=== PATIENT | female | born 1960 | race Hispanic/Latino ===

== ENCOUNTER 2020-12-24 11:42 | Emergency (ER) | payer OTHER ==
[~2020-12-24] VITALS: Ht 152.4 cm; Wt 3.6 kg
[2020-12-24] MEDS ORDERED: SODIUM CHLORIDE 0.9% 1000ML 1,000 ML IV STA (12:13)
[2020-12-24] MEDS ORDERED: METRONIDAZOLE 500MG/NS 100ML 100 ML IV ONE ×2 (12:15→12:39)
[2020-12-24] MEDS ORDERED: KETOROLAC TROMETHAMINE 30 MG/ML VIAL IV ONE (12:15)
[2020-12-24] MEDS ORDERED: ONDANSETRON HCL INJ 2MG/ML 2ML 2 MG/ML VIAL IV ONE (12:15)
[2020-12-24] MEDS ORDERED: PIPER-TAZ 3.375 GM 50 ML IV ONE (12:15)
[2020-12-24] MEDS ORDERED: FAMOTIDINE 20 MG/2 ML VIAL IV ONE ×2 (12:15→12:39)
[2020-12-24] MEDS ORDERED: CALCIUM CARBON500 MG PO (12:18)
[2020-12-24] MEDS ORDERED: OMEPRAZOLE40 MG PO (12:18)
[2020-12-24] MEDS ORDERED: DYMISTA NASAL S23 GM INH (12:18)
[2020-12-24] MEDS ORDERED: MONTELUKAST SOD10 MG PO (12:18)
[2020-12-24] MEDS ORDERED: TESSALON PERLE100 MG PO (12:18)
[2020-12-24] MEDS ORDERED: METOPROLOL SUCC50 MG PO (12:18)
[2020-12-24] MEDS ORDERED: CIPRO500 MG PO (12:18)
[2020-12-24] MEDS ORDERED: HYDROCHLOROTHIA50 MG (12:18)
[2020-12-24] MEDS ORDERED: VOLTAREN-XR100 MG PO (12:18)
[2020-12-24] MEDS ORDERED: FLONASE ALLERG9.9 ML INH (12:18)
[2020-12-24] MEDS ORDERED: DICYCLOMINE HCL10 MG PO (12:18)
[2020-12-24] MEDS ORDERED: ACETAMINOPHEN500 MG (12:18)
[2020-12-24] MEDS ORDERED: ONDANSETRON ODT4 MG PO (12:18)
[2020-12-24] MEDS ORDERED: SODIUM CHLORIDE 0.9% 50ML 50 ML ONE (12:33)
[2020-12-24] MEDS ORDERED: IOPAMIDOL 370 MG/ML 200 ML INFUS..BTL INJ ONE (12:33)
[2020-12-24] MEDS ORDERED: PIPER-TAZ 3.375 GM 50 ML ONE (12:39)
[2020-12-24] MEDS ORDERED: ONDANSETRON HCL INJ 2MG/ML 2ML 2 MG/ML VIAL ONE (12:39)
[2020-12-24] MEDS ORDERED: KETOROLAC TROMETHAMINE 30 MG/ML VIAL ONE (12:39)
[2020-12-24] MEDS ORDERED: SODIUM CHLORIDE 0.9% 1000ML 1,000 ML ONE (12:39)
[2020-12-24 13:21] LABS: ALBUMIN 2.3 g/dL (3.5-5.0); ALBUMIN/GLOBULIN RATIO 0.5 (0.8-2.0); ANION GAP 23.8 mmol/L (8-16); CALCIUM 8.3 mg/dL (8.4-10.2); CREATININE, SERUM 4.01 mg/dL (0.57-1.11)
[2020-12-24 13:24] LABS: POTASSIUM 2.8 mmol/L (3.5-5.1)
[2020-12-24] MEDS ORDERED: POTASSIUM CHLORIDE 20 MEQ TAB CR PO ONE ×2 (13:33→13:34)
[2020-12-24 15:28] VITALS: BP 160/73
== END 2020-12-24 15:10 | disposition left against medical advice (07) ==
LOC: FSED 12:15
DX: K63.1 Perforation of intestine (nontraumatic) (principal); N17.9 Acute kidney failure, unspecified; R10.33 Periumbilical pain; E87.1 Hypo-osmolality and hyponatremia; Z20.822 Contact with and (suspected) exposure to COVID-19
CPT/HCPCS: 36415; 74176; 80048; 80053; 80076; 81003; 83690; 85025; 96374; 96375; 99284; J1885; J2405; J2543; J7030; Q9967; U0002

== ENCOUNTER 2020-12-24 18:15 | Inpatient (IN) | payer OTHER ==
[~2020-12-24] VITALS: Ht 152.4 cm; Wt 61.2 kg
[~2020-12-24 18:15] MED LIST: ACETAMINOPHEN500 MG; CALCIUM CARBON500 MG PO; CIPRO500 MG PO; DICYCLOMINE HCL10 MG PO; DYMISTA NASAL S23 GM INH; FLONASE ALLERG9.9 ML INH; HYDROCHLOROTHIA50 MG; LEVOFLOXACIN 500MG/D5W 100ML 100 ML IV SCH; METOPROLOL SUCC50 MG PO; MONTELUKAST SOD10 MG PO; OMEPRAZOLE40 MG PO; ONDANSETRON ODT4 MG PO; TESSALON PERLE100 MG PO; VOLTAREN-XR100 MG PO
[2020-12-24] MEDS ORDERED: SODIUM CHLORIDE 0.9% 1000ML 1,000 ML IV ONE (18:30)
[2020-12-24 18:36] LABS: BASOPHILS # (AUTO) 0.1 (0.0-0.1); BASOPHILS % 0.5 % (0.0-1.0); EOSINOPHILS # (AUTO) 0.2 (0.0-0.4); EOSINOPHILS % 0.8 % (0.0-6.0); HEMATOCRIT 33.1 % (34.2-44.1); HEMOGLOBIN 11.7 g/dL (12.0-16.0); LYMPHOCYTES # (AUTO) 2.4 (1.0-3.2); LYMPHOCYTES % 10.1 % (18.0-39.1); MEAN CORPUSCULAR HGB CONC 35.3 g/dL (31-35); MEAN CORPUSCULAR VOLUME 87.8 fL (81-99); MONOCYTES % 4.1 % (4.4-11.3); NEUTROPHILS # (AUTO) 19.7 (2.1-6.9); NEUTROPHILS % 81.5 % (38.7-80.0); PLATELET COUNT 709 x10e3/uL (140-360); RED BLOOD COUNT 3.77 x10e6/uL (3.6-5.1)
[2020-12-24] MEDS: METRONIDAZOLE 500MG/NS 100ML 100 ML IV SCH (18:37)
[2020-12-24 19:17] LABS: ALBUMIN 2.2 g/dL (3.5-5.0); ALBUMIN/GLOBULIN RATIO 0.5 (0.8-2.0); ANION GAP 20.9 mmol/L (8-16); CALCIUM 7.7 mg/dL (8.4-10.2); CREATININE, SERUM 3.77 mg/dL (0.57-1.11)
[2020-12-24 19:19] LABS: POTASSIUM 2.9 mmol/L (3.5-5.1)
[2020-12-24] MEDS ORDERED: POTASSIUM CHLORIDE 20MEQ/100ML 100 ML IV STA (19:27)
[2020-12-24] MEDS ORDERED: LEVOFLOXACIN 250MG/D5W 50ML 50 ML IV SCH ×2 (19:30→21:44)
[2020-12-24] MEDS ORDERED: KCL 20MEQ/.9 SOD CHL 1,000 ML IV ONE (19:45)
[2020-12-24] MEDS: ONDANSETRON HCL INJ 2MG/ML 2ML 2 MG/ML VIAL IV PRN (20:23)
[2020-12-24] MEDS: MORPHINE SULFATE INJ 2 MG/ML SYR IV PRN (20:23)
[2020-12-24] MEDS ORDERED: HYDRALAZINE HCL 20 MG/ML VIAL IV PRN (21:15)
[2020-12-25] VITALS (20 sets, daily range): BP systolic 92–141; BP diastolic 62–81
[2020-12-25] MEDS: MORPHINE SULFATE INJ 2 MG/ML SYR IV PRN (01:05)
[2020-12-25] MEDS: ONDANSETRON HCL INJ 2MG/ML 2ML 2 MG/ML VIAL IV PRN ×4 (01:05→17:23)
[2020-12-25] MEDS: METRONIDAZOLE 500MG/NS 100ML 100 ML IV SCH ×5 (01:05→23:50)
[2020-12-25 05:48] LABS: BASOPHILS # (AUTO) 0.1 (0.0-0.1); BASOPHILS % 0.4 % (0.0-1.0); EOSINOPHILS # (AUTO) 0.4 (0.0-0.4); EOSINOPHILS % 1.9 % (0.0-6.0); HEMATOCRIT 28.4 % (34.2-44.1); HEMOGLOBIN 9.6 g/dL (12.0-16.0); LYMPHOCYTES # (AUTO) 1.6 (1.0-3.2); LYMPHOCYTES % 8.1 % (18.0-39.1); MEAN CORPUSCULAR HEMOGLOBIN 30.8 pg (28-32); MEAN CORPUSCULAR HGB CONC 33.8 g/dL (31-35); MONOCYTES # (AUTO) 1.2 (0.2-0.8); MONOCYTES % 6.3 % (4.4-11.3); NEUTROPHILS # (AUTO) 15.6 (2.1-6.9); NEUTROPHILS % 80.3 % (38.7-80.0); PLATELET COUNT 541 x10e3/uL (140-360); RED BLOOD COUNT 3.12 x10e6/uL (3.6-5.1); RED CELL DISTRIBUTION WIDTH 13.2 % (11.7-14.4)
[2020-12-25 06:19] LABS: ALBUMIN 1.8 g/dL (3.5-5.0); ALBUMIN/GLOBULIN RATIO 0.5 (0.8-2.0); ANION GAP 17.6 mmol/L (8-16); CALCIUM 7.4 mg/dL (8.4-10.2); CREATININE, SERUM 3.79 mg/dL (0.57-1.11); POTASSIUM 3.6 mmol/L (3.5-5.1)
[2020-12-25] MEDS ORDERED: MIDAZOLAM HCL 2 MG/2 ML VIAL ONE (13:06)
[2020-12-25] MEDS ORDERED: FENTANYL CITRATE/PF 100MCG/2 ML INJ ONE ×2 (13:06→16:08)
[2020-12-25] MEDS ORDERED: PROPOFOL IV EMULSION 10 MG/ML 20 ML VIAL ONE (13:44)
[2020-12-25] MEDS ORDERED: DEXAMETHASONE SOD PHOS INJ 4 MG/ML VIAL ONE (13:44)
[2020-12-25] MEDS ORDERED: SEVOFLURANE INHAL SOLN 250 ML PEN BTL ONE (13:44)
[2020-12-25] MEDS ORDERED: POVIDONE IODINE 0.05% 0.05 % ML PO ONE (13:44)
[2020-12-25] MEDS ORDERED: CEFOXITIN SOD 1 GM VIAL ONE (13:44)
[2020-12-25] MEDS ORDERED: ONDANSETRON HCL INJ 2MG/ML 2ML 2 MG/ML VIAL ONE (13:44)
[2020-12-25] MEDS ORDERED: ATROPINE SULFATE 1 MG/ML VIAL ONE (13:44)
[2020-12-25] MEDS ORDERED: NEOSTIGMINE 1 MG/ML 10ML VIAL ONE (13:44)
[2020-12-25] MEDS ORDERED: ROCURONIUM BROMIDE 10 MG/ML 5ML VIAL IV ONE (13:44)
[2020-12-25] MEDS ORDERED: KETOROLAC TROMETHAMINE 30 MG/ML VIAL ONE (13:44)
[2020-12-25] MEDS ORDERED: LIDOCAINE HCL 2% LOCAL INJ 5 ML SDV VIAL INJ ONE (13:44)
[2020-12-25] MEDS ORDERED: MORPHINE SULFATE INJ 2 MG/ML SYR ONE (16:18)
[2020-12-25] MEDS ORDERED: HYDROMORPHONE 1MG/1ML INJ ONE (16:23)
[2020-12-25] MEDS: MORPHINE SULFATE INJ 4 MG/ML INJ 1ML IV PRN ×2 (17:23→21:28)
[2020-12-25] MEDS ORDERED: SODIUM CHLORIDE 0.9% IV SCH (21:00)
[2020-12-25] MEDS ORDERED: CEFEPIME HCL IV SCH (21:00)
[2020-12-26] VITALS (24 sets, daily range): BP systolic 84–138; BP diastolic 53–73
[2020-12-26] MEDS: MORPHINE SULFATE INJ 4 MG/ML INJ 1ML IV PRN ×3 (03:29→08:16)
[2020-12-26 05:03] LABS: BASOPHILS # (AUTO) 0.1 (0.0-0.1); BASOPHILS % 0.3 % (0.0-1.0); HEMATOCRIT 30.2 % (34.2-44.1); HEMOGLOBIN 10.1 g/dL (12.0-16.0); LYMPHOCYTES # (AUTO) 1.3 (1.0-3.2); LYMPHOCYTES % 3.7 % (18.0-39.1); MEAN CORPUSCULAR HEMOGLOBIN 31.3 pg (28-32); MEAN CORPUSCULAR HGB CONC 33.4 g/dL (31-35); MEAN CORPUSCULAR VOLUME 93.5 fL (81-99); MONOCYTES # (AUTO) 1.1 (0.2-0.8); MONOCYTES % 3.1 % (4.4-11.3); NEUTROPHILS # (AUTO) 31.7 (2.1-6.9); NEUTROPHILS % 89.8 % (38.7-80.0); PLATELET COUNT 713 x10e3/uL (140-360); RED BLOOD COUNT 3.23 x10e6/uL (3.6-5.1); RED CELL DISTRIBUTION WIDTH 13.5 % (11.7-14.4)
[2020-12-26] MEDS: METRONIDAZOLE 500MG/NS 100ML 100 ML IV SCH ×3 (05:20→16:53)
[2020-12-26 05:29] LABS: ALBUMIN/GLOBULIN RATIO 0.5 (0.8-2.0); ANION GAP 21.5 mmol/L (8-16); CALCIUM 7.9 mg/dL (8.4-10.2); CREATININE, SERUM 3.98 mg/dL (0.57-1.11); POTASSIUM 4.5 mmol/L (3.5-5.1)
[2020-12-26 07:43] LABS: LYMPHOCYTES % (MANUAL) 5 % (19-48); MONOCYTES % (MANUAL) 3 % (3.4-9.0); NEUTROPHILS % (MANUAL) 92 % (40-74)
[2020-12-26 07:44] LABS: PLATELET ESTIMATE ADEQUATE; PLATELET MORPHOLOGY COMMENT NORMAL; RBC MORPHOLOGY COMMENT NORMAL
[2020-12-26] MEDS: PANTOPRAZOLE 40 MG 10ML VIAL IV SCH (07:55)
[2020-12-26] MEDS ORDERED: SODIUM CHLORIDE 0.9% 500ML 500 ML ONE (08:29)
[2020-12-26] MEDS ORDERED: SODIUM CHLORIDE 0.9% 500ML 500 ML IV SCH (08:30)
[2020-12-26] MEDS: SODIUM BICARBONATE 8.4% SYRING 150 ML in STERILE WATER IV SOLN 1,000 ML IV SCH ×2 (09:00→17:40)
[2020-12-26] MEDS: MORPHINE SULFATE INJ 2 MG/ML SYR IV PRN ×3 (12:02→20:07)
[2020-12-26] MEDS ORDERED: MORPHINE SULFATE INJ 2 MG/ML SYR IV STA (17:10)
[2020-12-26] MEDS ORDERED: SODIUM CHLORIDE 0.9% 100 ML ONE ×3 (20:23→21:07)
[2020-12-26] MEDS ORDERED: SODIUM CHLORIDE 0.9% 250ML 250 ML ONE (21:08)
[2020-12-26] MEDS: CEFEPIME HCL IV SCH (21:27)
[2020-12-26] MEDS: SODIUM CHLORIDE 0.9% IV SCH (21:27)
[2020-12-27] VITALS (22 sets, daily range): BP systolic 98–144; BP diastolic 63–82
[2020-12-27] MEDS: SODIUM BICARBONATE 8.4% SYRING 150 ML in STERILE WATER IV SOLN 1,000 ML IV SCH ×2 (00:26→12:11)
[2020-12-27] MEDS: METRONIDAZOLE 500MG/NS 100ML 100 ML IV SCH ×5 (00:26→23:38)
[2020-12-27] MEDS: MORPHINE SULFATE INJ 2 MG/ML SYR IV PRN ×5 (00:26→15:54)
[2020-12-27 04:54] LABS: BASOPHILS # (AUTO) 0.1 (0.0-0.1); BASOPHILS % 0.3 % (0.0-1.0); EOSINOPHILS # (AUTO) 0.2 (0.0-0.4); EOSINOPHILS % 0.8 % (0.0-6.0); HEMATOCRIT 22.4 % (34.2-44.1); HEMOGLOBIN 7.6 g/dL (12.0-16.0); LYMPHOCYTES # (AUTO) 2.4 (1.0-3.2); MEAN CORPUSCULAR HEMOGLOBIN 30.5 pg (28-32); MEAN CORPUSCULAR HGB CONC 33.9 g/dL (31-35); MONOCYTES # (AUTO) 1.1 (0.2-0.8); MONOCYTES % 5.8 % (4.4-11.3); NEUTROPHILS # (AUTO) 14.5 (2.1-6.9); PLATELET COUNT 553 x10e3/uL (140-360); RED BLOOD COUNT 2.49 x10e6/uL (3.6-5.1); RED CELL DISTRIBUTION WIDTH 13.5 % (11.7-14.4)
[2020-12-27 05:18] LABS: ANION GAP 17.3 mmol/L (8-16); CALCIUM 7.2 mg/dL (8.4-10.2); CREATININE, SERUM 3.43 mg/dL (0.57-1.11); POTASSIUM 3.3 mmol/L (3.5-5.1)
[2020-12-27] MEDS ORDERED: KCL 20MEQ/.9 SOD CHL 1,000 ML IV SCH (06:15)
[2020-12-27] MEDS ORDERED: SODIUM CHLORIDE 0.9% 250ML 250 ML IV ONE (06:30)
[2020-12-27] MEDS ORDERED: POTASSIUM CHLORIDE 20MEQ/100ML 100 ML IV ONE (06:45)
[2020-12-27] MEDS: PANTOPRAZOLE 40 MG 10ML VIAL IV SCH (08:04)
[2020-12-27] MEDS ORDERED: SODIUM CHLORIDE 0.9% 250ML 250 ML ONE ×2 (09:45→12:58)
[2020-12-27] MEDS: SODIUM CHLORIDE 0.9% 1000ML 1,000 ML IV SCH ×2 (15:02→23:38)
[2020-12-27] MEDS: CEFEPIME HCL IV SCH (20:24)
[2020-12-27] MEDS: SODIUM CHLORIDE 0.9% IV SCH (20:24)
[2020-12-28] VITALS (7 sets, daily range): BP systolic 135–155; BP diastolic 66–76
[2020-12-28] MEDS: METRONIDAZOLE 500MG/NS 100ML 100 ML IV SCH ×3 (00:45→18:05)
[2020-12-28] MEDS: MORPHINE SULFATE INJ 2 MG/ML SYR IV PRN ×4 (00:49→20:10)
[2020-12-28 08:21] LABS: BASOPHILS # (AUTO) 0.1 (0.0-0.1); BASOPHILS % 0.4 % (0.0-1.0); EOSINOPHILS # (AUTO) 0.2 (0.0-0.4); EOSINOPHILS % 0.9 % (0.0-6.0); HEMATOCRIT 31.8 % (34.2-44.1); HEMOGLOBIN 10.8 g/dL (12.0-16.0); LYMPHOCYTES # (AUTO) 1.5 (1.0-3.2); LYMPHOCYTES % 7.6 % (18.0-39.1); MEAN CORPUSCULAR HEMOGLOBIN 30.7 pg (28-32); MEAN CORPUSCULAR VOLUME 90.3 fL (81-99); MONOCYTES # (AUTO) 1.2 (0.2-0.8); NEUTROPHILS # (AUTO) 16.5 (2.1-6.9); NEUTROPHILS % 83.6 % (38.7-80.0); PLATELET COUNT 394 x10e3/uL (140-360); RED BLOOD COUNT 3.52 x10e6/uL (3.6-5.1); RED CELL DISTRIBUTION WIDTH 14.1 % (11.7-14.4)
[2020-12-28 08:40] LABS: ANION GAP 14.3 mmol/L (8-16); CALCIUM 7.4 mg/dL (8.4-10.2); CREATININE, SERUM 3.16 mg/dL (0.57-1.11); POTASSIUM 3.3 mmol/L (3.5-5.1)
[2020-12-28] MEDS: SODIUM CHLORIDE 0.9% 1000ML 1,000 ML IV SCH ×2 (09:05→20:58)
[2020-12-28] MEDS: PANTOPRAZOLE 40 MG 10ML VIAL IV SCH (09:05)
[2020-12-28] MEDS: ONDANSETRON HCL INJ 2MG/ML 2ML 2 MG/ML VIAL IV PRN ×2 (09:09→20:10)
[2020-12-28] MEDS ORDERED: POTASSIUM CHLORIDE 10MEQ EA PO ONE (13:30)
[2020-12-28] MEDS ORDERED: POTASSIUM CHLORIDE 20MEQ/100ML 200 ML IV ONE (13:45)
[2020-12-28] MEDS ORDERED: MAGNESIUM SULFATE 2GM/50ML 50 ML IV ONE (14:15)
[2020-12-28] MEDS: SODIUM CHLORIDE 0.9% IV SCH (20:57)
[2020-12-28] MEDS: CEFEPIME HCL IV SCH (20:57)
[2020-12-29] VITALS (7 sets, daily range): BP systolic 138–157; BP diastolic 67–84
[2020-12-29] MEDS: METRONIDAZOLE 500MG/NS 100ML 100 ML IV SCH ×5 (00:34→23:03)
[2020-12-29] MEDS: MORPHINE SULFATE INJ 2 MG/ML SYR IV PRN ×3 (00:59→23:40)
[2020-12-29] MEDS: ONDANSETRON HCL INJ 2MG/ML 2ML 2 MG/ML VIAL IV PRN ×2 (01:00→23:40)
[2020-12-29 04:47] LABS: BASOPHILS # (AUTO) 0.1 (0.0-0.1); BASOPHILS % 0.4 % (0.0-1.0); EOSINOPHILS # (AUTO) 0.3 (0.0-0.4); EOSINOPHILS % 1.8 % (0.0-6.0); HEMATOCRIT 31.1 % (34.2-44.1); HEMOGLOBIN 10.4 g/dL (12.0-16.0); LYMPHOCYTES # (AUTO) 1.8 (1.0-3.2); LYMPHOCYTES % 9.8 % (18.0-39.1); MEAN CORPUSCULAR HEMOGLOBIN 30.5 pg (28-32); MEAN CORPUSCULAR HGB CONC 33.4 g/dL (31-35); MEAN CORPUSCULAR VOLUME 91.2 fL (81-99); MONOCYTES # (AUTO) 1.2 (0.2-0.8); MONOCYTES % 6.3 % (4.4-11.3); NEUTROPHILS # (AUTO) 14.6 (2.1-6.9); NEUTROPHILS % 80.3 % (38.7-80.0); PLATELET COUNT 382 x10e3/uL (140-360); RED BLOOD COUNT 3.41 x10e6/uL (3.6-5.1)
[2020-12-29 05:06] LABS: CALCIUM 7.6 mg/dL (8.4-10.2); CREATININE, SERUM 3.09 mg/dL (0.57-1.11)
[2020-12-29] MEDS: PANTOPRAZOLE 40 MG 10ML VIAL IV SCH (07:52)
[2020-12-29] MEDS: SODIUM CHLORIDE 0.9% 1000ML 1,000 ML IV SCH (12:15)
[2020-12-29] MEDS: FUROSEMIDE INJ 10 MG/ML 4 ML VIAL IV SCH ×2 (14:14→22:12)
[2020-12-29] MEDS ORDERED: ACETAMINOPHEN 325 MG TAB PO PRN (16:00)
[2020-12-29] MEDS: CEFEPIME HCL IV SCH (22:12)
[2020-12-29] MEDS: SODIUM CHLORIDE 0.9% IV SCH (22:12)
[2020-12-30] VITALS (8 sets, daily range): BP systolic 121–155; BP diastolic 78–96
[2020-12-30] MEDS: METRONIDAZOLE 500MG/NS 100ML 100 ML IV SCH ×4 (05:07→23:53)
[2020-12-30] MEDS: MORPHINE SULFATE INJ 2 MG/ML SYR IV PRN (05:10)
[2020-12-30] MEDS: ONDANSETRON HCL INJ 2MG/ML 2ML 2 MG/ML VIAL IV PRN (05:10)
[2020-12-30 06:04] LABS: BASOPHILS # (AUTO) 0.1 (0.0-0.1); BASOPHILS % 0.5 % (0.0-1.0); EOSINOPHILS # (AUTO) 0.4 (0.0-0.4); HEMATOCRIT 30.3 % (34.2-44.1); HEMOGLOBIN 10.2 g/dL (12.0-16.0); LYMPHOCYTES # (AUTO) 1.8 (1.0-3.2); LYMPHOCYTES % 9.5 % (18.0-39.1); MEAN CORPUSCULAR HEMOGLOBIN 30.9 pg (28-32); MEAN CORPUSCULAR HGB CONC 33.7 g/dL (31-35); MEAN CORPUSCULAR VOLUME 91.8 fL (81-99); MONOCYTES # (AUTO) 1.3 (0.2-0.8); MONOCYTES % 6.8 % (4.4-11.3); NEUTROPHILS # (AUTO) 14.9 (2.1-6.9); NEUTROPHILS % 79.7 % (38.7-80.0); PLATELET COUNT 448 x10e3/uL (140-360); RED CELL DISTRIBUTION WIDTH 13.6 % (11.7-14.4)
[2020-12-30] MEDS: FUROSEMIDE INJ 10 MG/ML 4 ML VIAL IV SCH ×3 (06:17→21:28)
[2020-12-30 06:22] LABS: ANION GAP 16.4 mmol/L (8-16); CALCIUM 7.8 mg/dL (8.4-10.2); CREATININE, SERUM 3.1 mg/dL (0.57-1.11); POTASSIUM 3.4 mmol/L (3.5-5.1)
[2020-12-30] MEDS: PANTOPRAZOLE 40 MG 10ML VIAL IV SCH (08:51)
[2020-12-30] MEDS ORDERED: POTASSIUM CHLORIDE 20 MEQ TAB CR PO NR (11:00)
[2020-12-30] MEDS ORDERED: CEFEPIME HCL 2 GM VIAL ONE (20:51)
[2020-12-30] MEDS ORDERED: SODIUM CHLORIDE 0.9% 50ML 50 ML ONE (20:52)
[2020-12-30] MEDS: SODIUM CHLORIDE 0.9% IV SCH (21:28)
[2020-12-30] MEDS: CEFEPIME HCL IV SCH (21:28)
[2020-12-31] VITALS (9 sets, daily range): BP systolic 133–163; BP diastolic 77–97
[2020-12-31] MEDS: METRONIDAZOLE 500MG/NS 100ML 100 ML IV SCH ×4 (05:44→23:46)
[2020-12-31 05:48] LABS: BASOPHILS # (AUTO) 0.1 (0.0-0.1); BASOPHILS % 0.5 % (0.0-1.0); EOSINOPHILS # (AUTO) 0.3 (0.0-0.4); EOSINOPHILS % 1.8 % (0.0-6.0); HEMATOCRIT 30.4 % (34.2-44.1); HEMOGLOBIN 10.3 g/dL (12.0-16.0); LYMPHOCYTES # (AUTO) 1.7 (1.0-3.2); LYMPHOCYTES % 9.7 % (18.0-39.1); MEAN CORPUSCULAR HEMOGLOBIN 30.7 pg (28-32); MEAN CORPUSCULAR HGB CONC 33.9 g/dL (31-35); MEAN CORPUSCULAR VOLUME 90.5 fL (81-99); MONOCYTES # (AUTO) 1.4 (0.2-0.8); MONOCYTES % 8.1 % (4.4-11.3); NEUTROPHILS # (AUTO) 13.7 (2.1-6.9); NEUTROPHILS % 78.4 % (38.7-80.0); PLATELET COUNT 468 x10e3/uL (140-360); RED BLOOD COUNT 3.36 x10e6/uL (3.6-5.1); RED CELL DISTRIBUTION WIDTH 13.2 % (11.7-14.4)
[2020-12-31 06:10] LABS: ALBUMIN 1.8 g/dL (3.5-5.0); ALBUMIN/GLOBULIN RATIO 0.5 (0.8-2.0); ANION GAP 14.5 mmol/L (8-16); CALCIUM 7.7 mg/dL (8.4-10.2); CREATININE, SERUM 2.91 mg/dL (0.57-1.11); POTASSIUM 3.5 mmol/L (3.5-5.1)
[2020-12-31] MEDS: ONDANSETRON HCL INJ 2MG/ML 2ML 2 MG/ML VIAL IV PRN (09:18)
[2020-12-31] MEDS: PANTOPRAZOLE 40 MG 10ML VIAL IV SCH ×3 (09:18→17:13)
[2020-12-31] MEDS: FUROSEMIDE INJ 10 MG/ML 4 ML VIAL IV SCH ×2 (09:18→17:56)
[2020-12-31] MEDS ORDERED: CEFEPIME HCL 2 GM VIAL ONE (21:07)
[2020-12-31] MEDS ORDERED: SODIUM CHLORIDE 0.9% 100 ML ONE (21:08)
[2020-12-31] MEDS: SODIUM CHLORIDE 0.9% IV SCH (21:28)
[2020-12-31] MEDS: CEFEPIME HCL IV SCH (21:28)
[2021-01-01] VITALS (8 sets, daily range): BP systolic 146–167; BP diastolic 70–81
[2021-01-01] MEDS: METRONIDAZOLE 500MG/NS 100ML 100 ML IV SCH ×4 (05:14→23:33)
[2021-01-01 05:38] LABS: BASOPHILS # (AUTO) 0.1 (0.0-0.1); BASOPHILS % 0.5 % (0.0-1.0); EOSINOPHILS # (AUTO) 0.4 (0.0-0.4); EOSINOPHILS % 2.6 % (0.0-6.0); HEMATOCRIT 29.1 % (34.2-44.1); HEMOGLOBIN 9.8 g/dL (12.0-16.0); LYMPHOCYTES # (AUTO) 2.1 (1.0-3.2); LYMPHOCYTES % 13.2 % (18.0-39.1); MEAN CORPUSCULAR HEMOGLOBIN 30.9 pg (28-32); MEAN CORPUSCULAR HGB CONC 33.7 g/dL (31-35); MEAN CORPUSCULAR VOLUME 91.8 fL (81-99); MONOCYTES # (AUTO) 1.2 (0.2-0.8); MONOCYTES % 7.9 % (4.4-11.3); NEUTROPHILS # (AUTO) 11.6 (2.1-6.9); NEUTROPHILS % 74.6 % (38.7-80.0); PLATELET COUNT 503 x10e3/uL (140-360); RED BLOOD COUNT 3.17 x10e6/uL (3.6-5.1); RED CELL DISTRIBUTION WIDTH 13.5 % (11.7-14.4)
[2021-01-01 06:00] LABS: ANION GAP 16.2 mmol/L (8-16); CALCIUM 7.7 mg/dL (8.4-10.2); CREATININE, SERUM 2.71 mg/dL (0.57-1.11); POTASSIUM 3.2 mmol/L (3.5-5.1)
[2021-01-01] MEDS ORDERED: MAGNESIUM/ALUMINUM/SIMETHICONE 30 ML UDC PO PRN (07:30)
[2021-01-01] MEDS: FUROSEMIDE INJ 10 MG/ML 4 ML VIAL IV SCH ×2 (09:24→21:00)
[2021-01-01] MEDS: PANTOPRAZOLE 40 MG 10ML VIAL IV SCH ×2 (09:24→18:19)
[2021-01-01] MEDS: METOPROLOL SUCCINATE 50 MG TAB XL PO SCH (09:39)
[2021-01-01] MEDS ORDERED: POTASSIUM CHLORIDE 10MEQ EA PO ONE (13:30)
[2021-01-01] MEDS ORDERED: SIMETHICONE 80 MG CHEW PO PRN (14:00)
[2021-01-01] MEDS: SODIUM CHLORIDE 0.9% IV SCH (21:00)
[2021-01-01] MEDS: CEFEPIME HCL IV SCH (21:00)
[2021-01-02] VITALS (8 sets, daily range): BP systolic 122–163; BP diastolic 73–93
[2021-01-02] MEDS: METRONIDAZOLE 500MG/NS 100ML 100 ML IV SCH ×3 (05:42→17:05)
[2021-01-02 06:20] LABS: BASOPHILS # (AUTO) 0.1 (0.0-0.1); BASOPHILS % 0.7 % (0.0-1.0); EOSINOPHILS # (AUTO) 0.4 (0.0-0.4); EOSINOPHILS % 2.7 % (0.0-6.0); HEMATOCRIT 27.9 % (34.2-44.1); HEMOGLOBIN 9.4 g/dL (12.0-16.0); LYMPHOCYTES % 15.1 % (18.0-39.1); MEAN CORPUSCULAR HEMOGLOBIN 31.1 pg (28-32); MEAN CORPUSCULAR HGB CONC 33.7 g/dL (31-35); MEAN CORPUSCULAR VOLUME 92.4 fL (81-99); MONOCYTES # (AUTO) 1.1 (0.2-0.8); MONOCYTES % 7.8 % (4.4-11.3); NEUTROPHILS # (AUTO) 9.8 (2.1-6.9); NEUTROPHILS % 72.7 % (38.7-80.0); PLATELET COUNT 515 x10e3/uL (140-360); RED BLOOD COUNT 3.02 x10e6/uL (3.6-5.1); RED CELL DISTRIBUTION WIDTH 13.7 % (11.7-14.4)
[2021-01-02 06:43] LABS: ANION GAP 13.9 mmol/L (8-16); CALCIUM 7.5 mg/dL (8.4-10.2); CREATININE, SERUM 2.07 mg/dL (0.57-1.11)
[2021-01-02 06:48] LABS: POTASSIUM 2.9 mmol/L (3.5-5.1)
[2021-01-02] MEDS ORDERED: POTASSIUM CHLORIDE 20 MEQ TAB CR PO ONE (09:00)
[2021-01-02] MEDS: PANTOPRAZOLE 40 MG 10ML VIAL IV SCH (09:26)
[2021-01-02] MEDS: METOPROLOL SUCCINATE 50 MG TAB XL PO SCH (09:28)
[2021-01-02] MEDS: FUROSEMIDE INJ 10 MG/ML 4 ML VIAL IV SCH (09:29)
[2021-01-02] MEDS ORDERED: MAGNESIUM SULFATE 2GM/50ML 50 ML IV ONE (11:15)
[2021-01-02] MEDS ORDERED: FUROSEMIDE INJ 10 MG/ML 4 ML VIAL IV SCH (18:00)
[2021-01-02] MEDS: CEFEPIME HCL IV SCH (21:00)
[2021-01-02] MEDS: SODIUM CHLORIDE 0.9% IV SCH (21:00)
[2021-01-02] MEDS ORDERED: SODIUM CHLORIDE 0.9% 100 ML ONE (22:57)
[2021-01-02] MEDS: CALCIUM CARBONATE 500 MG CHEWABLE TABS PO PRN (23:00)
[2021-01-03] VITALS (8 sets, daily range): BP systolic 141–161; BP diastolic 76–89
[2021-01-03 05:39] LABS: BASOPHILS # (AUTO) 0.1 (0.0-0.1); BASOPHILS % 0.8 % (0.0-1.0); EOSINOPHILS # (AUTO) 0.3 (0.0-0.4); EOSINOPHILS % 2.7 % (0.0-6.0); LYMPHOCYTES # (AUTO) 1.9 (1.0-3.2); LYMPHOCYTES % 15.4 % (18.0-39.1); MEAN CORPUSCULAR HEMOGLOBIN 30.9 pg (28-32); MEAN CORPUSCULAR HGB CONC 33.3 g/dL (31-35); MEAN CORPUSCULAR VOLUME 92.8 fL (81-99); MONOCYTES % 8.4 % (4.4-11.3); NEUTROPHILS # (AUTO) 8.7 (2.1-6.9); PLATELET COUNT 470 x10e3/uL (140-360); RED BLOOD COUNT 2.91 x10e6/uL (3.6-5.1); RED CELL DISTRIBUTION WIDTH 13.8 % (11.7-14.4)
[2021-01-03 06:01] LABS: ALBUMIN/GLOBULIN RATIO 0.6 (0.8-2.0); ANION GAP 15.1 mmol/L (8-16); CALCIUM 7.7 mg/dL (8.4-10.2); CREATININE, SERUM 1.4 mg/dL (0.57-1.11); POTASSIUM 3.1 mmol/L (3.5-5.1)
[2021-01-03] MEDS: METRONIDAZOLE 500MG/NS 100ML 100 ML IV SCH ×4 (06:47→17:08)
[2021-01-03] MEDS: PANTOPRAZOLE 40 MG 10ML VIAL IV SCH (09:00)
[2021-01-03] MEDS: METOPROLOL SUCCINATE 50 MG TAB XL PO SCH ×3 (09:00→17:16)
[2021-01-03] MEDS ORDERED: POTASSIUM CHLORIDE 10MEQ EA PO NR (15:30)
[2021-01-03] MEDS: CALCIUM CARBONATE 500 MG CHEWABLE TABS PO PRN (15:56)
[2021-01-03] MEDS ORDERED: CALCIUM CARBONATE 500 MG CHEWABLE TABS PO PRN (16:30)
[2021-01-03] MEDS: SODIUM CHLORIDE 0.9% IV SCH (21:23)
[2021-01-03] MEDS: CEFEPIME HCL IV SCH (21:23)
[2021-01-04] VITALS (7 sets, daily range): BP systolic 136–155; BP diastolic 77–97
[2021-01-04 06:28] LABS: BASOPHILS # (AUTO) 0.1 (0.0-0.1); BASOPHILS % 1.1 % (0.0-1.0); EOSINOPHILS # (AUTO) 0.3 (0.0-0.4); EOSINOPHILS % 2.7 % (0.0-6.0); HEMATOCRIT 27.2 % (34.2-44.1); HEMOGLOBIN 8.8 g/dL (12.0-16.0); LYMPHOCYTES # (AUTO) 2.2 (1.0-3.2); MEAN CORPUSCULAR HEMOGLOBIN 30.7 pg (28-32); MEAN CORPUSCULAR HGB CONC 32.4 g/dL (31-35); MEAN CORPUSCULAR VOLUME 94.8 fL (81-99); MONOCYTES # (AUTO) 0.9 (0.2-0.8); MONOCYTES % 8.3 % (4.4-11.3); NEUTROPHILS # (AUTO) 7.3 (2.1-6.9); NEUTROPHILS % 67.1 % (38.7-80.0); PLATELET COUNT 482 x10e3/uL (140-360); RED BLOOD COUNT 2.87 x10e6/uL (3.6-5.1); RED CELL DISTRIBUTION WIDTH 14.1 % (11.7-14.4)
[2021-01-04 06:51] LABS: ANION GAP 14.3 mmol/L (8-16); BLOOD UREA NITROGEN 14 mg/dL (7-26); BUN/CREATININE RATIO 15 (6-25); CALCIUM 7.7 mg/dL (8.4-10.2); CARBON DIOXIDE 24 mmol/L (22-29); CHLORIDE 101 mmol/L (98-107); CREATININE, SERUM 0.91 mg/dL (0.57-1.11); EST GLOMERULAR FILTRATION RATE > 60 ML/MIN (60-); GLUCOSE 75 mg/dL (74-118); POTASSIUM 3.3 mmol/L (3.5-5.1); SODIUM 136 mmol/L (136-145)
[2021-01-04] MEDS ORDERED: POTASSIUM BICARBONATE/CIT AC 20 MEQ TABLET.EFF PO ONE (08:35)
[2021-01-04] MEDS: PANTOPRAZOLE 40 MG 10ML VIAL IV SCH (08:53)
[2021-01-04] MEDS: METOPROLOL SUCCINATE 50 MG TAB XL PO SCH ×2 (08:54→16:37)
[2021-01-04] MEDS ORDERED: LASIX20 MG PO (16:27)
== END 2021-01-04 20:16 | disposition home or self-care (01) | DRG 853 ==
LOC: ER 18:21 → ERHOLD 20:02 → ICU 12-25 00:14 → IMCU 12-28 05:54 → MED/SURG 12-29 23:00
PROVIDERS: ADMIT Internal Medicine; ATTEND Internal Medicine
PROC: 0D1E0Z4 Bypass Large Intestine to Cutaneous, Open Approach (ICD-10-PCS; 2020-12-25)
PROC: 0DTN0ZZ Resection of Sigmoid Colon, Open Approach (ICD-10-PCS; principal; 2020-12-25 13:35)
PROC: 02HV33Z Insertion of Infusion Device into Superior Vena Cava, Percutaneous Approach (ICD-10-PCS; 2020-12-26)
DX: A41.9 Sepsis, unspecified organism (principal); N17.0 Acute kidney failure with tubular necrosis; K65.9 Peritonitis, unspecified; K57.20 Diverticulitis of large intestine with perforation and abscess without bleeding; E87.1 Hypo-osmolality and hyponatremia; E87.6 Hypokalemia; Z20.822 Contact with and (suspected) exposure to COVID-19
CPT/HCPCS: 36415; 36569; 71045; 76770; 80048; 80053; 83605; 83735; 85025; 86850; 86900; 86920; 87040; 88307; 93005; 97139; 99251; 99284; J0461; J0692; J0694; J1100; J1170; J1885; J1940; J1956; J2001; J2250; J2270; J2405; J2710; J3010; J3475; J3480; J7030; J7040; J7050; P9016; U0002